=== PATIENT | female | born 1935 | race Caucasian/White ===

== ENCOUNTER 2019-03-29 08:30 | Outpatient (CLI) | payer MEDICARE ==
--- NOTE | 2019-03-29 09:17 | ULT ---
ULTRASOUND ABDOMEN: HISTORY: Abdominal pain FINDINGS: The liver, spleen and visualized portions of the aorta and IVC appear normal. The patient is post cho lecystectomy. The pancreas is not satisfactorily visualized due to overlying bowel gas. No hydronephrosis is seen on either side. There is a 1.2 cm cyst in the right kidney and 1.9 cm cyst in the left kidney. The common duct measures 2mm in diameter. No free fluid is seen. IMPRESSION: Bilateral renal cysts.
== END 2019-03-29 08:31 | disposition home or self-care (01) ==
LOC: NAV ULT 08:30
PROVIDERS: ATTEND Internal Medicine Gastroenterology
DX: R94.5 Abnormal results of liver function studies (principal); N28.1 Cyst of kidney, acquired
CPT/HCPCS: 76700